=== PATIENT | male | born 1965 | race Caucasian/White ===

== ENCOUNTER 2016-12-04 11:51 | Emergency (ER) | payer BC, OTHER ==
[2016-12-04 12:27] VITALS: BP 167/87; PULSE 115; RESP 18; TEMP 97; O2SAT 97
--- NOTE | 2016-12-04 14:02 | UCPHY ---
H & P Time Seen by Provider: 12/04/16 13:17 Patient Type: Established HPI/ROS: 51-year-old male presents complaining of intermittent cough for approximately 1 month. He has been traveling for work and taken over 27 flights over the last 30 days. Over the last few days he has felt body aches fevers chills. He denies chest pain he denies shortness of breath he denies leg swelling. Review of systems As per HPI General no fever no chills no weakness HEENT no eye pain no eye discharge. No eye redness, no sore throat Respiratory positive cough, no shortness of breath Cardiac no chest pain, no peripheral edema GI no abdominal pain, no diarrhea, no constipation, no nausea, no vomiting no flank pain, no hematuria, no dysuria Musculoskeletal positive myalgias, no joint pain Heme no easy bruising, no easy bleeding Endo no polyuria, no polydipsia Skin no rashes, no pruritus Neuro no syncope, no dizziness, no headaches Psych is no suicidal ideation, no homicidal ideation Past Medical/Surgical History: Noncontributory Social History: Travels for work Alcohol socially, denies drug use Smoking Status: Never smoked Physical Exam: 51-year-old male alert and oriented in no acute distress nontoxic appearance HEENT atraumatic normocephalic, extraocular muscles intact, anicteric Oropharynx negative for erythema negative exudate, tolerating her own secretions Neck supple no meningismus Lungs clear to auscultation bilaterally Heart regular rate and rhythm without murmur rub or gallop Abdomen nondistended normoactive bowel sounds soft nontender Back no CVA tenderness, no step-offs, no spinal tenderness Extremities no cyanosis clubbing or edema Neuro alert and oriented, no focal deficits Constitutional: Initial Vital Signs Temperature (C) 36.1 C 12/04/16 12:14 Heart Rate 115 H 12/04/16 12:14 Respiratory Rate 18 12/04/16 12:14 Blood Pressure 167/87 H 12/04/16 12:14 O2 Sat (%) 97 12/04/16 12:14 O2 Delivery Mode Room Air Allergies/Adverse Reactions: No Known Allergies Allergy (Unverified 11/03/15 13:39) Home Medications: Medication Instructions Recorded Acetaminophen with Codeine 1 each PO DAILY PRN #10 tablet 12/04/16 [Acetaminophen-Cod #4 Tablet] Medical Decision Making ED Course/Re-evaluation: Patient seen and evaluated for cough, myalgias Physical exam without positive findings Lungs clear to auscultation, no wheezing no rhonchi Influenza B positive Impression Influenza Plan Rest, drink plenty of fluids, acetaminophen or ibuprofen as needed for pain Return for shortness of breath or severe pain. Patient had had symptoms for greater than 1 week so therefore no Tamiflu offered - Data Points Laboratory Results: 12/04/16 12:20 Influenza Typ A,B (DFA) POSITIVE FOR FLU B H (NEGATIVE) Departure - Departure Disposition: Home, Routine, Self-Care Clinical Impression: Influenza B Condition: Good Instructions: Influenza (ED) Referrals: NONE *PRIMARY CARE P,. [Primary Care Provider] - As per Instructions Prescriptions: Acetaminophen with Codeine [Acetaminophen-Cod #4 Tablet] 1 each PO DAILY PRN # 10 tablet PRN Reason: Cough, Severe - PQRS PQRS Measurement: na
== END 2016-12-04 14:17 | disposition home or self-care (01) ==
LOC: CED 11:51
DX: J10.1 Influenza due to other identified influenza virus with other respiratory manifestations (principal)
CPT/HCPCS: 87400-PO; 99214-PO; G0463-PO